=== PATIENT | male | born 1930 | race Caucasian/White ===

== ENCOUNTER → 2017-01-02 | Outpatient (CLI) | payer MEDICARE, OTHER ==
[~2017-01-02] MED LIST: ADULT LOW DOSE81 MG PO; ANORO ELLIPTA1 EACH INH; CERTAVITE SR-AN1 TAB PO; COZAAR50 MG PO; KLONOPIN1 MG PO; LIPITOR40 MG PO; OMEPRAZOLE20 MG PO; PRAVACHOL40 MG PO; PROAIR HFA8.5 GM INH; TOPROL XL25 MG PO; TRAVATAN Z2.5 ML EYEBOTH; VENTOLIN HFA8 GM INH; VITAMIN D31000 UNI1 PO; ZOLEDRONIC5 MG/100 M IV
== END | disposition short-term general hospital (02) ==
LOC: CLCARD 08:43 → CLORTH 15:48 → CLCARD 15:50
DX: I25.10 Atherosclerotic heart disease of native coronary artery without angina pectoris (principal); J44.9 Chronic obstructive pulmonary disease, unspecified; Z95.1 Presence of aortocoronary bypass graft; E78.5 Hyperlipidemia, unspecified